=== PATIENT | female | born 1945 | race Caucasian/White ===

== ENCOUNTER 2018-08-15 05:10 | Inpatient (IN) ==
--- NOTE | 2018-08-09 10:28 | EKG Report ---
Test Performed on : 08/09/2018 09:48:24 AM Test Reason : PAT Blood Pressure : / mmHG Vent. Rate : 083 BPM Atrial Rate : 083 BPM P-R Int : 150 ms QRS Dur : 078 ms QT Int : 360 ms P-R-T Axes : 059 -22 060 degrees QTc Int : 423 ms Sinus rhythm. with marked sinus arrhythmia. with occasional premature ventricular complexes. Otherwise normal ECG No previous ECGs available Confirmed by Mack JOSHUA, Roger Farias ([id number]) on 08/09/2018 5:09:55 PM
[2018-08-09 10:36] LABS: HEMATOCRIT 39.1 % (37.0-47.0); HEMOGLOBIN 13.6 g/dL (12.0-16.0); MCH 32.9 PG (27-31); MCHC 34.8 g/dL (33-37); MCV 94.4 FL (81-99); RBC 4.14 XMIL (4.2-5.4); RDW 12.9 % (11.5-14.5); WBC 4.82 X1000 (4.8-10.8)
[2018-08-09 11:06] LABS: AGAP 16; BUN 16 mg/dL (8-22); CHLORIDE 92 mmol/L (98-107); COSMO 270; CREATININE 0.9 mg/dL (0.5-0.9); ESTIMATED GFR > 60; GLUCOSE 112 mg/dL (70-104); SODIUM 134 mmol/L (136-145); TCO2 26 mmol/L (25-35)
[2018-08-15] MEDS ORDERED: ENTEREG ONE (05:41)
[2018-08-15] MEDS ORDERED: INVANZ 1 GM/NS 1 GM/50 ML IVPB ONE (05:41)
[2018-08-15] MEDS ORDERED: LR 1,000 ML ONE ×2 (05:41→06:10)
[2018-08-15] MEDS ORDERED: MARCAINE 0.25% PF/EPI 1:200,000 ONE (06:10)
[2018-08-15] MEDS ORDERED: ZOFRAN ONE ×2 (06:32→07:43)
[2018-08-15] MEDS ORDERED: DIPRIVAN 1% ONE (06:41)
[2018-08-15] MEDS ORDERED: XYLOCAINE-MPF 2% ONE (06:41)
[2018-08-15] MEDS ORDERED: SODIUM CHLORIDE 0.9% 10 ML ONE ×2 (06:42→06:58)
[2018-08-15] MEDS ORDERED: NORCURON ONE (06:42)
[2018-08-15] MEDS ORDERED: QUELICIN (DOSE) ONE (06:43)
[2018-08-15] MEDS ORDERED: VERSED ONE (06:45)
[2018-08-15] MEDS ORDERED: FENTANYL ONE (06:45)
[2018-08-15] MEDS ORDERED: MARCAINE 0.25% ONE (06:58)
[2018-08-15] MEDS ORDERED: EXPAREL 1.3% ONE (06:59)
[2018-08-15] MEDS ORDERED: DECADRON ONE (07:43)
[2018-08-15] MEDS ORDERED: TORADOL ONE (07:43)
[2018-08-15] MEDS ORDERED: OFIRMEV 1000 MG/ISOTONIC SOLN 1,000 MG/100 ML BOTTLE ONE (08:22)
[2018-08-15 08:30] LABS: URINE SOURCE CATH
[2018-08-15 08:37] LABS: BILIRUBIN URINE NEGATIVE (NEGATIVE); BLOOD URINE TRACE (NEGATIVE); COLOR YELLOW; GLUCOSE URINE NEGATIVE (NEGATIVE); KETONE URINE 20 mg/dL (NEGATIVE); LEUKOCYTES URINE NEGATIVE (NEGATIVE); NITRITE URINE NEGATIVE (NEGATIVE); PROTEIN URINE NEGATIVE (NEGATIVE); SP GRAVITY URINE 1.015; TURBIDITY URINE CLEAR (CLEAR); UROBILINOGEN URINE NORMAL (NORMAL)
[2018-08-15 08:39] LABS: UR EPITHELIAL CELLS <10 /HPF (<10); URINE BACTERIA NEGATIVE /HPF; URINE RBC <10 /HPF (<10); URINE WBC <10 /HPF (<10)
[2018-08-15] MEDS ORDERED: ROBINUL ONE (08:56)
[2018-08-15] MEDS ORDERED: NEOSTIGMINE ONE (08:56)
--- NOTE | 2018-08-15 10:18 | OPERATIVE NOTE ---
PROCEDURE DATE: 08/15/2018 PROCEDURE PERFORMED: Laparoscopic assisted sigmoid colon resection. SURGEON: Eze Stovall MD. PERSONALIZATION SPECIALIST: SINDHU Stiles. PREOPERATIVE DIAGNOSIS: Villous lesion of the sigmoid colon. POSTOPERATIVE DIAGNOSIS: Villous lesion of the sigmoid colon. DESCRIPTION OF PROCEDURE: Satisfactory general endotracheal anesthesia was achieved. The patient was placed in Roger stirrups. The abdomen was prepped and draped in a sterile fashion. An abdominal wall block had been accomplished by the anesthesiologist. After the abdomen was prepped and draped, we then made a small vertical incision above the umbilicus. Dissected down to the fascia. Scored the fascia. Introduced an 11 trocar. We insufflated through this trocar. We then introduced a 5 trocar in the left upper quadrant and an 11 trocar in the right lower quadrant. We placed the patient in Trendelenburg. We were able to identify the tattooed area in the distal sigmoid. We then used the LigaSure to score the perineum and incised the white line of Toldt down into the pelvis. We then went medially and did the same thing from proximal to distal. We divided some of the mesentery, in fact, most of the mesentery with the LigaSure. This then we felt was ready because the lesion was easily pulled up and there was a fairly good length of sigmoid. We felt we could exterior the sigmoid loop including the lesion satisfactorily. We flattened the patient then and made a 7 cm incision in the lower hypogastrium. We carried our incision through the subcutaneous tissue, through the midline fascia, and between the muscles, and entered the abdominal cavity. We extended the skin incision. We then were able to grasp the sigmoid loop with a Liz and raise it up. We then exteriorized a major portion of the sigmoid loop and then cleaned the mesentery off all the way to the bowel where we were going to transect the bowel on both sides. We used a PROMISE 60 on both sides to staple and divide the colon, and handed off the sigmoid loop including the lesion. We got a satisfactory margin distally and a very good margin proximally. We then had two stapled ends of bowel. We then used a 3-0 silk in a seromuscular stitch posteriorly. We excised the staple lines on both sides. We then used a 3-0 Polysorb running locking stitch posteriorly, changed to a Ciarra stitch anteriorly, and then the final layer of 3-0 silks in a Lembert fashion. This completed the sewn double layer anastomosis. We then were able to drop the anastomosis back in and through the opening in the abdominal wall, we were able to place two 3-0 silk stitches in the mesentery. We changed gloves at this point. We then closed the peritoneum with a 2-0 chromic. We closed the fascia with a running #1 PDS. We irrigated out the subcutaneous tissue copiously. We then replaced our trocars and then re- insufflated. The sigmoid loop looked satisfactory and no intra-abdominal bleeding was identified. We had seen the ureter during our dissection and kept it from harm. We aspirated what fluid had collected. Everything look satisfactory so we then desufflated. We placed a 2-0 Polysorb stitch in the muscle of the right lower quadrant trocar site and the fascia of the epigastric trocar site was closed with 2-0 Polysorb as well. We then closed the skin at each incision with 4-0 Polysorb subcuticular stitches. Sterile Op-Sites were applied. She tolerated it well. Was sent to the recovery room in satisfactory condition. cc: MD Timoteo Curtis MD
[2018-08-15] MEDS ORDERED: ZOFRAN IV PRN (10:24)
[2018-08-15] MEDS ORDERED: DILAUDID IV PRN (10:24)
[2018-08-15] MEDS: LOVENOX SUBQ SCH (11:32)
[2018-08-15] MEDS: D5 LR 1,000 ML IV SCH ×2 (11:32→21:03)
[2018-08-15] MEDS: OFIRMEV 1000 MG/ISOTONIC SOLN 1,000 MG/100 ML BOTTLE IV SCH ×3 (13:55→21:04)
[2018-08-15] MEDS: PERIDEX MT SCH (21:03)
[2018-08-15] MEDS: PRINZIDE 10/12.5MG PO SCH (21:04)
[2018-08-16] MEDS: OFIRMEV 1000 MG/ISOTONIC SOLN 1,000 MG/100 ML BOTTLE IV SCH ×2 (03:27→08:59)
[2018-08-16] MEDS: PRINZIDE 10/12.5MG PO SCH ×2 (06:06→20:54)
[2018-08-16 06:39] LABS: EOS# 0.01 X1000 (0.0-0.7); EOS% 0.1 % (0.0-10.0); HEMATOCRIT 31.6 % (37.0-47.0); HEMOGLOBIN 10.8 g/dL (12.0-16.0); IMM GRAN# 0.02 X1000 (0.0-0.04); IMM GRAN% 0.2 % (0.0-0.5); LYMPH# 0.84 X1000 (1.2-3.4); LYMPH% 9.9 % (20.5-51.1); MCH 31.7 PG (27-31); MCHC 34.2 g/dL (33-37); MCV 92.7 FL (81-99); MONO# 0.62 X1000 (0.11-0.59); MONO% 7.3 % (1.7-9.3); MPV 9.1 FL (7.4-10.4); NEUT# 6.99 X1000 (1.4-6.5); NEUT% 82.5 % (42.2-75.2); PLT 222 X1000 (130-400); RBC 3.41 XMIL (4.2-5.4); RDW 12.5 % (11.5-14.5); WBC 8.48 X1000 (4.8-10.8)
[2018-08-16] MEDS: D5 LR 1,000 ML IV SCH ×2 (09:00→18:55)
[2018-08-16] MEDS: PERIDEX MT SCH ×2 (09:00→20:45)
[2018-08-16] MEDS ORDERED: ULTRAM PO PRN (09:51)
--- NOTE | 2018-08-16 10:04 | GENERAL SURGERY PROGRESS NOTE ---
DATE: 08/16/2018 PHYSICAL EXAMINATION: vital signs: She is afebrile, heart rate 63, blood pressure 99/56. lungs: She has clear breath sounds. abdomen: Bowel sounds are present. Her abdomen is minimally distended. She denies nausea. PLAN: The plan will be to start her on clear liquids. We will remove her Cunningham catheter and reduce her IV rate. cc: Eze Stovall MD
[2018-08-16] MEDS: LOVENOX SUBQ SCH (10:22)
[2018-08-16 19:24] LABS: HEMATOCRIT 35.1 % (37.0-47.0); HEMOGLOBIN 12.2 g/dL (12.0-16.0)
[2018-08-17] MEDS: D5 LR 1,000 ML IV SCH (00:29)
[2018-08-17] MEDS: PERIDEX MT SCH ×2 (08:18→22:23)
[2018-08-17] MEDS ORDERED: SALINE LOCK IV FLUID XX ONE (12:14)
--- NOTE | 2018-08-17 14:00 | GENERAL SURGERY PROGRESS NOTE ---
DATE: 08/17/2018 SUBJECTIVE: Silvana is doing well. She had a little bloody liquid bowel movement last night. That seems to have stopped. OBJECTIVE: Vital Signs: She is afebrile. Heart rate 71, blood pressure 113/61. Lungs: Her lungs are clear. Abdomen: Her abdomen is soft. She does have bowel sounds. She has been passing flatus. She has tolerated liquids well. PLAN: Give her solid food and make her IV saline lock. Perhaps she can be discharged tomorrow if all continues well. cc: Eze Stovall MD
[2018-08-17] MEDS: PRINZIDE 10/12.5MG PO SCH (22:23)
[2018-08-17] MEDS: LOVENOX SUBQ SCH (22:25)
[2018-08-18] MEDS: D5 LR 1,000 ML IV SCH (00:11)
[2018-08-18 07:51] VITALS: BP 107/59
[2018-08-18] MEDS: PERIDEX MT SCH (09:47)
--- NOTE | 2018-08-18 10:01 | GENERAL SURGERY PROGRESS NOTE ---
DATE: 08/18/2018 SUBJECTIVE: It is 9:20 in the morning. Silvana is doing well. She is afebrile. Hemodynamics were good. Her abdomen is soft. Bowel sounds are present. She has had no further bowel movements. Denies any bleeding. She is tolerating her solid food, even though she is not eating a lot. PLAN: The plan will be to discharge her later today if everything continues well. I did discuss her activities at home. She will return to see me in the office about Monday, the . cc: Eze Stovall MD
--- NOTE | 2018-09-01 06:26 | DISCHARGE SUMMARY ---
ADMISSION DATE: 08/15/2018 DISCHARGE DATE: 08/18/2018 PRIMARY DISCHARGE DIAGNOSIS: Villous adenoma of the sigmoid colon. PRIMARY PROCEDURE: Laparoscopic assisted sigmoid colon resection. HISTORY: This is a 73-year-old, who was discovered to have a villous lesion with possible dysplasia on colonoscopy. She is now sent for definitive resection. HOSPITAL COURSE: After her home bowel prep, she was admitted on the and underwent the laparoscopic assisted sigmoid resection. Postoperatively, she did very well. She did have a block at the time of her surgery which did improve her pain relief. We did remove her Cunningham on the first postoperative day, and reduced her IV rate. We started her on clear liquids on the first postoperative day. We advanced her diet subsequently, and went from full liquids then onto solid food by the 6th. On the 6th, she was tolerating solid food. She had been passing flatus, and it was felt she could be discharged home. She will resume her usual medications at discharge. Her pain relief is really negligible so she will use Tylenol for pain relief. Her pathology did reveal simply villous lesion with some focal high-grade dysplasia, but no evidence of invasive cancer. cc: MD Dr. Valencia Curtis
== END 2018-08-18 12:46 | disposition home or self-care (01) | DRG 331 ==
LOC: SURHOLD 05:10 → 4N 08:39
PROVIDERS: ADMIT Surgery; ATTEND Surgery
CPT/HCPCS: 80048; 81001; 82378; 85014; 85018; 85025; 85027; 86850; 86900; 86901; 88309; 88313; 93005; 93010; 94761; 94799; A9270; C9290; J0131; J0330; J1100; J1335; J1650; J1885; J2250; J2405; J3010; J7120; J7121; S0020